=== PATIENT | female | born 1975 | race Caucasian/White ===

== ENCOUNTER → 2020-10-08 | Outpatient (CLI) | payer OTHER ==
[2020-10-08 10:21] LABS: Basophils # (A) 0.1 k/uL (0-0.2); Basophils % (A) 1 %; Eosinophils # (A) 0.3 k/uL (0-0.7); Eosinophils % (A) 3 %; HCT 44.1 % (34.0-46.0); HGB 14.3 gm/dL (11.4-16.0); Lymphocytes # (A) 2.2 k/uL (1.0-4.8); Lymphocytes % (A) 22 %; MCH 28.7 pg (25.0-35.0); MCHC 32.3 g/dL (31.0-37.0); MCV 88.8 fL (80.0-100.0); Mean Platelet Volume 8.3; Monocytes # (A) 0.8 k/uL (0-1.0); Monocytes % (A) 8 %; Neutrophils # (A) 6.4 k/uL (1.3-7.7); Neutrophils % (A) 65 %; Platelet Count 257 k/uL (150-450); RBC 4.97 m/uL (3.80-5.40); RDW 13.8 % (11.5-15.5); WBC 9.9 k/uL (3.8-10.6)
[2020-10-08 10:26] LABS: Basophils # (A) 0.1 k/uL (0-0.2); Basophils % (A) 1 %; Eosinophils # (A) 0.3 k/uL (0-0.7); Eosinophils % (A) 5 %; HGB 14.5 gm/dL (11.4-16.0); Lymphocytes # (A) 1.8 k/uL (1.0-4.8); Lymphocytes % (A) 34 %; MCHC 33.1 g/dL (31.0-37.0); MCV 93.7 fL (80.0-100.0); Mean Platelet Volume 6.7; Monocytes # (A) 0.4 k/uL (0-1.0); Monocytes % (A) 8 %; Neutrophils # (A) 2.6 k/uL (1.3-7.7); Neutrophils % (A) 50 %; Platelet Count 406 k/uL (150-450); RDW 13.5 % (11.5-15.5); WBC 5.3 k/uL (3.8-10.6)
[2020-10-08 15:13] LABS: African American GFR (CKD) 103.2 (60.0-200.0); Albumin 4.1 g/dL (3.80-4.90); Albumin/Globulin Ratio 1.86 (1.60-3.17); Anion Gap 4.1 mmol/L (4.00-12.00); BUN/Creat Ratio 17.5 Ratio (12.00-20.00); Carbon Dioxide 29.9 mmol/L (21.6-31.8); Chol/HDL Ratio 3.81; Globulin 2.2 g/dL (1.6-3.3); Potassium 4.2 mmol/L (3.5-5.5); Total Bilirubin 0.5 mg/dL (0.3-1.2); Total Protein 6.3 g/dL (6.2-8.2)
[2020-10-08 15:46] LABS: T4, Free (Free Thyroxine) 0.9 ng/dL (0.80-1.80)
[2020-10-08 18:43] LABS: Hemoglobin A1C 5.2 % (4.0-6.0)
== END | disposition home or self-care (01) ==
LOC: LABWHC1 08:57
PROVIDERS: ATTEND Nurse Practitioner Psychiatric/Mental Health
DX: F33.2 Major depressive disorder, recurrent severe without psychotic features (principal); Z79.899 Other long term (current) drug therapy
CPT/HCPCS: 36415; 80053; 80061; 83036; 84439; 84443; 85025

== ENCOUNTER 2020-12-27 09:50 | Emergency (ER) | payer OTHER ==
[2020-12-27] MEDS ORDERED: ONDANSETRON ODT 4 MG TAB PO STA (10:39)
[2020-12-27] MEDS ORDERED: HYDROmorphone 1 MG/ML 1 ML SYRINGE IM STA (10:39)
--- NOTE | 2020-12-27 11:20 | XR ---
EXAMINATION TYPE: XR wrist complete RT DATE OF EXAM: 12/27/2020 COMPARISON: NONE HISTORY: 45-year-old female with history of fusion to 3 years ago, pain. TECHNIQUE: 3 views FINDINGS: There appears to have been partial navicular resection. Lucency in the distal radius suggests site of previous bone graft harvesting. Soft tissue swelling about the wrist. 2 dorsal surgical boubacar are present. One bridges between the lunate and capitate (where there seems to be areas of bony ankylosis as well) and one bridges between the triquetrum and hamate. The first of these shows prominent perip rosthetic lucency at the level of the capitate and the second shows some periprosthetic lucency at th e level of the hamate. Irregularity of the articular surface along the ulnar aspect of the radius may be postsurgical or posttraumatic. IMPRESSION: 1. 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 2. 2 dorsal surgical boubacar are present, one bridging the lunocapitate joint (where at least some karyna ny ankylosis is present) and one bridging between the triquetrum and hamate bone. Both of these show periprosthetic lucency around portions of the staple. This could be due to mechanical loosening or lo osening from infection. Further clinical correlation is recommended. Comparison with any available ou tside priors is also recommended to determine how much of the lucency is new. 3. Irregularity of the articular surface along the ulnar aspect of the distal radius could be postsur gical or posttraumatic.
[2020-12-27] MEDS ORDERED: LORazepam 1 MG TAB PO STA (11:22)
[2020-12-27] MEDS ORDERED: SODIUM CHLORIDE 0.9% 1,000 ML IV STA (11:57)
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
[2020-12-27] MEDS ORDERED: LORazepam 2 MG/ML INJ IV STA (12:28)
[2020-12-27 12:49] LABS: Basophils # (A) 0.1 k/uL (0-0.2); Basophils % (A) 1 %; Eosinophils # (A) 0.3 k/uL (0-0.7); Eosinophils % (A) 2 %; HCT 43.6 % (34.0-46.0); HGB 14.9 gm/dL (11.4-16.0); Lymphocytes # (A) 1.5 k/uL (1.0-4.8); Lymphocytes % (A) 11 %; MCH 31.5 pg (25.0-35.0); MCHC 34.1 g/dL (31.0-37.0); MCV 92.2 fL (80.0-100.0); Mean Platelet Volume 6.7; Monocytes # (A) 0.8 k/uL (0-1.0); Monocytes % (A) 6 %; Neutrophils # (A) 10.1 k/uL (1.3-7.7); Neutrophils % (A) 79 %; Platelet Count 418 k/uL (150-450); RBC 4.73 m/uL (3.80-5.40); RDW 13.1 % (11.5-15.5); WBC 12.8 k/uL (3.8-10.6)
[2020-12-27 13:00] LABS: African American GFR (CKD) >90 (>60 ml/min/1.73 sqM); Anion Gap 9 mmol/L; Blood Urea Nitrogen 13 mg/dL (7-17); C Reactive Protein 5.5 mg/L (<10.0); Calcium 9.5 mg/dL (8.4-10.2); Carbon Dioxide 25 mmol/L (22-30); Chloride 104 mmol/L (98-107); Glucose 120 mg/dL (74-99); Non-African American GFR(CKD) >90 (>60 ml/min/1.73 sqM); Potassium 3.8 mmol/L (3.5-5.1); Sodium 138 mmol/L (137-145)
[2020-12-27 14:05] VITALS: BP 139/78; PULSE 89; RESP 18; TEMP 98.8
[2020-12-27 14:24] LABS: Erythrocyte Sedimentation Rate 7 mm/hr (0-20)
== END 2020-12-27 14:05 | disposition home or self-care (01) ==
LOC: EC 09:50
DX: M25.531 Pain in right wrist (principal); F17.200 Nicotine dependence, unspecified, uncomplicated; Z98.1 Arthrodesis status; Z79.899 Other long term (current) drug therapy; Z79.51 Long term (current) use of inhaled steroids; Z88.5 Allergy status to narcotic agent
CPT/HCPCS: 36415; 80048; 83605; 85025; 85652; 86140; 87040; 96361; 96372; 96374; 99283

== ENCOUNTER → 2021-01-11 | Outpatient (CLI) | payer OTHER ==
--- NOTE | 2021-01-11 12:04 | CT ---
EXAMINATION TYPE: CT wrist RT wo con DATE OF EXAM: 01/11/2021 COMPARISON: Plain film 12/27/2020 HISTORY: Pain CT DLP: 73.6 mGycm Automated exposure control for dose reduction was used. Helical imaging obtained through the right wr ist, multiplanar reformats were performed FINDINGS: The postop changes as noted on plain film are seen, there is resorption along the lateral staple at i ts tract distally and also the tracts of the medial staple. The proximal aspect of the staple extends into the joint space of the lateral staple. Multiple areas of geode formation noted within the wrist . Osteoarthritic change at the radiocarpal joint, there are small minute bone fragments present consi stent with loose bodies. Artifact is present due to patient's hardware. Lunate show some remodeling, bone loss. No evident dislocation. IMPRESSION: POSTOP CHANGES AND SECONDARY OSTEOPHYTIC CHANGES, THERE MAY BE LOOSENING OF THE CHASITY, DIFFICULT TO EXCLUDE INFECTION. ADDITIONAL FINDINGS ABOVE.
== END | disposition home or self-care (01) ==
LOC: RADCTMAIN 08:18
PROVIDERS: ATTEND Orthopaedic Surgery
DX: M19.031 Primary osteoarthritis, right wrist (principal); Z98.890 Other specified postprocedural states

== ENCOUNTER 2021-07-27 16:33 | Observation (INO) | payer OTHER ==
[2021-07-27] MEDS ORDERED: DIPH,PERTUS(ACELL)TETVAC-LF 0.5 ML VIAL IM ONE (16:56)
[2021-07-27] MEDS ORDERED: SODIUM CHLORIDE 0.9% 500 ML 500 ML IV STA (16:56)
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
[2021-07-27 18:09] LABS: ALT 11 U/L (4-34); AST 22 U/L (14-36); African American GFR (CKD) >90 (>60 ml/min/1.73 sqM); Albumin 4.4 g/dL (3.5-5.0); Alcohol <10 mg/dL; Alkaline Phosphatase 76 U/L (38-126); Anion Gap 7 mmol/L; Blood Urea Nitrogen 14 mg/dL (7-17); Calcium 9.5 mg/dL (8.4-10.2); Carbon Dioxide 21 mmol/L (22-30); Chloride 108 mmol/L (98-107); Glucose 107 mg/dL (74-99); Non-African American GFR(CKD) >90 (>60 ml/min/1.73 sqM); Potassium 4.2 mmol/L (3.5-5.1); Sodium 136 mmol/L (137-145); Total Bilirubin 0.3 mg/dL (0.2-1.3); Total Protein 7.3 g/dL (6.3-8.2)
[2021-07-27 18:13] LABS: INR 0.9 (<1.2); Partial Thromboplastin Time 22.1 sec (22.0-30.0); Prothrombin Time 9.5 sec (9.0-12.0)
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
[2021-07-27 20:19] LABS: Appearance,Urine Clear (Clear); Bilirubin,Urine Negative (Negative); Blood,Urine Negative (Negative); Color,Urine Light Yellow; Glucose,Urine (UA) Negative (Negative); Ketones,Urine Negative (Negative); Leukocyte Esterase,Urine Trace (Negative); Mucus,Urine Rare /hpf; Nitrite,Urine Negative (Negative); PH, Urine 7.5 (5.0-8.0); Protein,Urine Negative (Negative); RBC,Urine 3 /hpf (0-5); Squamous Epithelial Cell,Urine 4 /hpf (0-4); Urobilinogen,Urine <2.0 mg/dL (<2.0); WBC,Urine 1 /hpf (0-5)
--- NOTE | 2021-07-27 20:21 | XR ---
Result: History: Pain. Comparison: None available. Technique: 3 views of the right knee. Findings: No acute fracture or dislocation is seen. The visualized osseous structures are in anatomic alignmen t. The joint spaces are preserved. There is no significant knee joint effusion. Impression: No acute osseous abnormality.
[2021-07-27 20:32] LABS: Amphetamine Screen,Urine Not Detected (NotDetected); Barbiturate Screen,Urine Not Detected (NotDetected); Benzodiazepines Screen,Urine Not Detected (NotDetected); Cocaine Screen,Urine Detected (NotDetected); Methadone Screen, Urine Not Detected (NotDetected); Opiate Screen,Urine Detected (NotDetected); Oxycodone Screen, Urine Not Detected (NotDetected); Phencyclidine Screen,Urine Not Detected (NotDetected); Specific Gravity,Urine >1.050 (1.001-1.035); Tricyclic Antidepressant,Urine Not Detected (NotDetected); Urn Cannabinoid Scrn Detected (NotDetected)
[2021-07-27 22:14] LABS: Basophils % (A) 0 %; Eosinophils # (A) 0.1 k/uL (0-0.7); Eosinophils % (A) 1 %; HCT 42.5 % (34.0-46.0); HGB 14.3 gm/dL (11.4-16.0); Lymphocytes # (A) 1.5 k/uL (1.0-4.8); Lymphocytes % (A) 12 %; MCH 32.1 pg (25.0-35.0); MCHC 33.7 g/dL (31.0-37.0); MCV 95.3 fL (80.0-100.0); Mean Platelet Volume 7.2; Monocytes # (A) 0.6 k/uL (0-1.0); Monocytes % (A) 5 %; Neutrophils # (A) 10.3 k/uL (1.3-7.7); Neutrophils % (A) 82 %; Platelet Count 376 k/uL (150-450); RBC 4.46 m/uL (3.80-5.40); RDW 12.8 % (11.5-15.5); WBC 12.6 k/uL (3.8-10.6)
[2021-07-27] MEDS: SODIUM CHLORIDE 0.9% 1,000 ML IV SCH (22:16)
[2021-07-28] MEDS: SODIUM CHLORIDE 0.9% 1,000 ML IV SCH ×3 (02:53→21:03)
[2021-07-28] MEDS ORDERED: ALBUTEROL NEBULIZED 2.5 MG/3 ML INHALATION PRN (13:07)
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
[2021-07-28] MEDS: busPIRone HCl 10 MG TAB PO SCH ×2 (14:31→21:04)
[2021-07-28] MEDS: VARENICLINE 1 MG TAB PO SCH ×2 (14:32→21:04)
[2021-07-28] MEDS: PILOCARPINE 5 MG TAB PO SCH ×2 (14:32→21:04)
[2021-07-28] MEDS: HYDROXYCHLOROQUINE SULFATE 200 MG TAB PO SCH ×2 (14:32→21:04)
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
[2021-07-28] MEDS: CYCLOBENZAPRINE 10 MG TAB PO SCH (18:06)
[2021-07-28] MEDS: GABAPENTIN 300 MG CAP PO SCH (18:06)
[2021-07-28] MEDS: IPRATROPIUM-ALBUTEROL 3 ML NEB INHALATION SCH (20:12)
[2021-07-28] MEDS ORDERED: lamoTRIgine 100 MG TAB PO SCH (21:00)
[2021-07-28] MEDS ORDERED: ESCITALOPRAM 10 MG TAB PO SCH (21:00)
[2021-07-28] MEDS: NICOTINE 21MG/24HR PATCH TRANSDERM SCH (21:02)
[2021-07-28] MEDS: HEPARIN SODIUM,PORCINE/PF 5,000 UNIT/0.5 ML SYRINGE SQ SCH (21:03)
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
[2021-07-29] MEDS: CYCLOBENZAPRINE 10 MG TAB PO SCH ×2 (05:00→07:31)
[2021-07-29] MEDS: GABAPENTIN 300 MG CAP PO SCH ×2 (05:01→07:30)
[2021-07-29] MEDS: SODIUM CHLORIDE 0.9% 1,000 ML IV SCH ×2 (05:05→10:50)
[2021-07-29] MEDS: VARENICLINE 1 MG TAB PO SCH (07:30)
[2021-07-29] MEDS: HYDROXYCHLOROQUINE SULFATE 200 MG TAB PO SCH (07:30)
[2021-07-29] MEDS: HEPARIN SODIUM,PORCINE/PF 5,000 UNIT/0.5 ML SYRINGE SQ SCH (07:30)
[2021-07-29] MEDS: busPIRone HCl 10 MG TAB PO SCH (07:30)
[2021-07-29] MEDS: PILOCARPINE 5 MG TAB PO SCH (07:30)
[2021-07-29] MEDS: NICOTINE 21MG/24HR PATCH TRANSDERM SCH (07:31)
[2021-07-29] MEDS: IPRATROPIUM-ALBUTEROL 3 ML NEB INHALATION SCH ×2 (07:58→12:24)
[2021-07-29] MEDS ORDERED: FLUTICASONE 110 MCG INHALER INHALATION SCH (08:00)
[2021-07-29 08:04] VITALS: BP 132/85; RESP 16; TEMP 97.9
[2021-07-29 08:06] VITALS: PULSE 74
[2021-07-29] MEDS ORDERED: CHOLECALCIFEROL 25 MCG (1000 IU) TABLET PO SCH (09:00)
[2021-07-29] MEDS ORDERED: PANTOPRAZOLE 40 MG TABLET PO SCH (09:00)
[2021-07-29] MEDS ORDERED: SODIUM CHLORIDE 0.9% 1,000 ML IV ONE (09:31)
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
== END 2021-07-29 13:33 | disposition home or self-care (01) ==
LOC: EC 16:33 → 6NMEDSUR 20:54
PROVIDERS: ADMIT Surgery Plastic and Reconstructive Surgery; ATTEND Surgery Plastic and Reconstructive Surgery
DX: S01.111A Laceration without foreign body of right eyelid and periocular area, initial encounter (principal); V89.2XXA Person injured in unspecified motor-vehicle accident, traffic, initial encounter; T79.7XXA Traumatic subcutaneous emphysema, initial encounter; S02.401A Maxillary fracture, unspecified side, initial encounter for closed fracture; S01.512A Laceration without foreign body of oral cavity, initial encounter; S02.85XA Fracture of orbit, unspecified, initial encounter for closed fracture; S01.81XA Laceration without foreign body of other part of head, initial encounter; F14.90 Cocaine use, unspecified, uncomplicated; Y92.410 Unspecified street and highway as the place of occurrence of the external cause; Z23 Encounter for immunization; F41.8 Other specified anxiety disorders; F39 Unspecified mood [affective] disorder; F17.210 Nicotine dependence, cigarettes, uncomplicated; F12.90 Cannabis use, unspecified, uncomplicated; G40.909 Epilepsy, unspecified, not intractable, without status epilepticus; J44.9 Chronic obstructive pulmonary disease, unspecified; K21.9 Gastro-esophageal reflux disease without esophagitis; M35.00 Sjogren syndrome, unspecified; N20.0 Calculus of kidney; N64.4 Mastodynia; Z79.51 Long term (current) use of inhaled steroids; Z79.899 Other long term (current) drug therapy; Z91.14 Patient's other noncompliance with medication regimen
CPT/HCPCS: 96361 ×2; 96366 ×4; 96372 ×2; 12013; 90471; 96365; 99285; 36415; 94640; 95819; 93005; 86900; 86901; 80053; 80175; 84484; 85025; 85610; 85730; 86850; 81001; 80306; 73110; 73562; 72125; 70486; 70450; 71260; 74177; 90715; G0378 ×3; G0480; S4990 ×2; J0690 ×3; Q9967; J1644 ×2; 80320